=== PATIENT | male | born 1985 | race Hispanic/Latino ===

== ENCOUNTER 2018-06-04 01:50 | Emergency (ER) | payer BC, OTHER ==
--- OUTSIDE RECORDS SUMMARY | 2018-06-04 01:52 | XMS REPORT ---
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 Problem Name Problem Onset Status Entry Provider Comment Standard Annotate Code Date Date Description Health V70.0 Active Gypsy Routine general screening 10/01 10/01 Kevin mala RN examination at a health care facility Contact with V15.89 Active Malcolm Other specified and 09/29 10/01 Isabell personal (suspected) MD history exposure to presenting human hazards to [facility] virus [HIV] Preventative V70.0 Active Amalia Routine general health care 07/14 07/14 [facility] [place] mala menon MA examination at a health care facility MRSA 041.12 Active Hossein Methicillin infection, R 05/21 05/21 Michele resistant popliteal O'Josh Staphylococcus fold PRODUCT DESIGN SPECIALIST-C aureus infection in conditions classified elsewhere and of unspecified site BMI 24.0-24.9 Active Hossein Body Mass Index 01/20 01/20 Michele between 19-24, O'Josh adult PRODUCT DESIGN SPECIALIST-C Gonorrhea, hx 098.0 Active Hossein Gonococcal urethra, of 10/16 10/16 Michele infection rectal, and O'Josh (acute) of pharyngeal PRODUCT DESIGN SPECIALIST-C lower genitourinary tract Medication, V58.6 Active Hossein Long-term manager terminal use 10/16 10/16 Michele (current) drug O'Josh use PRODUCT DESIGN SPECIALIST-C Pre-Exposure V69.2 Active Hossein High-risk Prophylaxis 10/16 01/15 Michele sexual behavior O'Josh PRODUCT DESIGN SPECIALIST-C Tobacco user 305.1 Active Hossein Tobacco use 01/20 Michele disorder O'Josh PRODUCT DESIGN SPECIALIST-C Pre-Exposure V69.2 Inactive Hossein High-risk Prophylaxis 10/16 10/16 Michele sexual behavior z72.52 O'Josh PRODUCT DESIGN SPECIALIST-C Std screening ICD-V74.5 Inactive Hossein Michele 10/16 [facility] PRODUCT DESIGN SPECIALIST-C Sx of dysuria ICD-788.1 Inactive Hossein Bautista 10/16 O'Josh PRODUCT DESIGN SPECIALIST-C Urethral ICD-788.7 Inactive Hossein Bautista discharge O'Josh PRODUCT DESIGN SPECIALIST-C Std screening V74.5 Resolved Hossein Bautista Screening O'Josh PRODUCT DESIGN SPECIALIST-C examination for venereal disease Sx of dysuria 788.1 Resolved Hossein Bautista Dysuria O'Josh PRODUCT DESIGN SPECIALIST-C Urethral 788.7 Resolved Hossein Bautista Urethral discharge O'Josh PRODUCT DESIGN SPECIALIST-C discharge Medication List Medication Instructions Start Stop Generic NDC Status Provider Patient Date Date Name Instruction ISENTRESS 1 By RALTEGRAVIR [id number] Active Malcolm Active 400 MG ORAL Mouth POTASSIUM Nemecek MD TABLET Twice a Day for 28 days TRUVADA 1 by EMTRICITABINE- [id number] Active Malcolm Active 200-300 MG mouth TENOFOVIR Nemecek MD ORAL TABLET daily for 28 days BACTRIM 1 tab BACTRIM 475301 TRIMETHOPRIM- SULFAMETHOXAZOLE Inactive DS by DS 800-160 mouth 800-160 MG ORAL twice MG ORAL TABLET a day TABLET TRUVADA 1 by TRUVADA EMTRICITABINE-TENOFOVIR Inactive 200-300 mouth 200-300 MG ORAL daily MG ORAL TABLET TABLET BACTRIM 1 tab TRIMETHOPRIM-SULFAMETHOXAZOLE [id number] No Malcolm Active DS by Longer Nemecek 800-160 mouth Active MD MG ORAL twice TABLET a day TRUVADA 1 by EMTRICITABINE-TENOFOVIR [id number] No Malcolm Active 200-300 mouth Longer Nemecek MG ORAL daily Active MD TABLET Advance Directives Directive Description Start Date DISCUSSED - NO DECISION MADE Vital Signs Date Name Value Unit Range Description blood pressure, diastolic 83 mm[Hg] BP pérez blood pressure, systolic 119 mm[Hg] BP sys height E&M 67 [in_us] Bdy height pulse rate E&M 54 /min Heart rate respiratory rate E&M 16 /min Resp rate temperature E&M 98.8 [degF] Body temperature weight E&M 143.20 [lb_av] Weight Measured Diagnostic Results Date Name Value Unit Range Description Lab Report: CBC With Differential/Platelet, Comp. Metabolic Panel (14), ... - Serology hepatitis C antibody, serum <0.1 0.0-0.9 Lab Report: CBC With Differential/Platelet, Comp. Metabolic Panel (14), ... - Hematology lymphocyte count, blood, automated 1.8 X10E3/UL 10*3/mm3 0.7- 3.1 Lab Report: CBC With Differential/Platelet, Comp. Metabolic Panel (14), ... - Chemistry urea nitrogen, blood 13 mg/dL 6-20 creatinine, serum 0.99 mg/dL 0.76-1.27 chloride, serum 98 mmol/L 96-106 Lab Report: CBC With Differential/Platelet, Comp. Metabolic Panel (14), ... - Hematology mean corpuscular volume, RBC 88 fL 79-97 erythrocyte (RBC) count 4.90 X10E6/UL 10*6/mm3 4.14-5.80 Lab Report: CBC With Differential/Platelet, Comp. Metabolic Panel (14), ... - Chemistry Estimated Glomerular Filtration Rate (calc) 102 mL/min/1.73m2 > 59 Lab Report: CBC With Differential/Platelet, Comp. Metabolic Panel (14), ... - Hematology platelet count 328 X10E3/UL 10*3/mm3 442-797 1694/05/31 red blood cell distribution width 14.0 % 12.3-15.4 Lab Report: CBC With Differential/Platelet, Comp. Metabolic Panel (14), ... - Chemistry protein, total, serum 7.8 g/dL 6.0-8.5 albumin/globulin ratio, serum 1.8 1.2-2.2 Lab Report: CBC With Differential/Platelet, Comp. Metabolic Panel (14), ... - Hematology eosinophils as percent of blood leukocytes 3 % Lab Report: CBC With Differential/Platelet, Comp. Metabolic Panel (14), ... - Chemistry Absolute Neutrophils 3.7 X10E3/UL 10*3/uL 1.4-7.0 Lab Report: CBC With Differential/Platelet, Comp. Metabolic Panel (14), ... - Hematology basophil count, absolute 0.0 x10E3/uL 0.0-0.2 Lab Report: Anaerobic and Aerobic Culture, Result, Anaerobic and Aerobic ... - Chemistry Culture, Anaerobic Final report Lab Report: CBC With Differential/Platelet, Comp. Metabolic Panel (14), ... - Chemistry hepatitis B surface antigen Negative Negative Lab Report: Ct/GC ELSA, Rectal, Ct/GC ELSA, Pharyngeal - Microbiology Neisseria gonorrhoeae, throat culture Negative Negative Lab Report: CBC With Differential/Platelet, Comp. Metabolic Panel (14), ... - Chemistry alanine aminotransferase (SGPT), serum 28 U/L 0-44 Lab Report: CBC With Differential/Platelet, Comp. Metabolic Panel (14), ... - Hematology monocytes as percent of blood leukocytes 11 % Lab Report: Anaerobic and Aerobic Culture, Result, Anaerobic and Aerobic ... - Lab Aerobic culture Final report Lab Report: CBC With Differential/Platelet, Comp. Metabolic Panel (14), ... - Hematology mean corpuscular hemoglobin 34.0 G/DL % 31.5-35.7 concentration, RBC hemoglobin, blood 14.7 g/dL 12.6-17.7 leukocyte count, blood 6.4 X10E3/UL 10*3/mm3 3.4-10.8 hematocrit, blood 43.2 % 37.5-51.0 Lab Report: CBC With Differential/Platelet, Comp. Metabolic Panel (14), ... - Chemistry globulin, serum 2.8 1.5-4.5 albumin, serum 5.0 g/dL 3.5-5.5 calcium, serum 10.1 mg/dL 8.7-10.2 Lab Report: CBC With Differential/Platelet, Comp. Metabolic Panel (14), ... - Hematology basophils as percent of blood leukocytes 1 % monocyte count, blood, automated 0.7 X10E3/UL 10*3/uL 0.1-0.9 Lab Report: CBC With Differential/Platelet, Comp. Metabolic Panel (14), ... - Chemistry immature granulocytes, percentage of total cells, blood 0 % urea nitrogen/creatinine ratio, serum 13 9-20 Lab Report: CBC With Differential/Platelet, Comp. Metabolic Panel (14), ... - Genetics/fertility eGFR if 118 mL/min/1.73m2 >59 Lab Report: CBC With Differential/Platelet, Comp. Metabolic Panel (14), ... - Hematology lymphocytes as percent of blood leukocytes 28 % Lab Report: CBC With Differential/Platelet, Comp. Metabolic Panel (14), ... - Chemistry carbon dioxide, venous blood 22 mmol/L 18-29 Lab Report: CBC With Differential/Platelet, Comp. Metabolic Panel (14), ... - Serology rapid plasma reagin antibody, serum Non Reactive Non Reactive Lab Report: Chlamydia/GC Amplification - Lab chlamydia DNA probe Negative Negative Lab Report: CBC With Differential/Platelet, Comp. Metabolic Panel (14), ... - Chemistry sodium, serum 137 mmol/L 134-144 Lab Report: Chlamydia/GC Amplification - Microbiology Neisseria gonorrhoeae DNA probe Negative Negative Lab Report: CBC With Differential/Platelet, Comp. Metabolic Panel (14), ... - Chemistry alkaline phosphatase, serum 75 U/L 39-117 Lab Report: CBC With Differential/Platelet, Comp. Metabolic Panel (14), ... - Hematology Eosinophil Absolute Count 0.2 X10E3/UL 10*3/uL 0.0-0.4 Lab Report: Ct/GC ELSA, Rectal, Ct/GC ELSA, Pharyngeal - Basic GC Rectum Negative Negative Lab Report: CBC With Differential/Platelet, Comp. Metabolic Panel (14), ... - Hematology mean corpuscular hemoglobin, RBC 30.0 pg 26.6-33.0 Nurse Visit: Nurse Visit - PEP - Chemistry HIV rapid test results negative Lab Report: CBC With Differential/Platelet, Comp. Metabolic Panel (14), ... - Chemistry bilirubin, serum, total 1.0 mg/dL 0.0-1.2 Lab Report: CBC With Differential/Platelet, Comp. Metabolic Panel (14), ... - Hematology neutrophils as percent of blood leukocytes 57 % Lab Report: CBC With Differential/Platelet, Comp. Metabolic Panel (14), ... 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 Focus - 89224 PRODUCT DESIGN SPECIALIST-C Est Patient Problem Hossein Escobar CPT-98420 [facility] Adult Medicine 14:46:57 CDT Focus - 51966 PRODUCT DESIGN SPECIALIST-C New Patient Detailed Hossein Escobar CPT-66622 [facility] [place] Adult Medicine 10:07:46 CDT - 10976 PRODUCT DESIGN SPECIALIST-C Est Patient Nurse - Sonia Mark RN CPT-52274 [facility] [place] [facility] Adult Medicine 11:01:13 CDT Only Visit - 07943 Procedures Code Procedure Name Date Entry Date Standard Description CPT-FC001 Financial Counseling/Eligibility 09:15:50 AGRICULTURAL PRODUCTION ENGINEER Assistance [facility]-HE001 Health Education/Supportive 11:37:44 AGRICULTURAL PRODUCTION ENGINEER Counseling CPT-HE001 Health Education/Supportive 16:21:01 AGRICULTURAL PRODUCTION ENGINEER Counseling CPT-HE001 Health Education/Supportive 16:33:14 CDT Counseling CPT-FC001 Financial Counseling/Eligibility 10:42:39 CDT Assistance [facility]-HE001 Health Education/Supportive 09:25:18 CDT Counseling CPT-HE001 Health Education/Supportive 11:42:13 CDT Counseling CPT-HE001 Health Education/Supportive 15:15:04 CDT Counseling [facility]-HE001 Health Education/Supportive 11:35:05 CDT Counseling CPT-HE001 Health Education/Supportive 16:03:42 CDT Counseling CPT-HE001 Health Education/Supportive 15:30:44 CDT Counseling CPT-HE001 Health Education/Supportive 14:21:57 CDT Counseling CPT-HE001 Health Education/Supportive 15:36:04 CDT Counseling CPT-HE001 Health Education/Supportive 15:13:37 CDT Counseling CPT-HE001 Health Education/Supportive 16:26:03 CDT Counseling CPT-HE001 Health Education/Supportive 14:20:04 CDT Counseling CPT-HE001 Health Education/Supportive 16:39:08 CDT Counseling CPT-HE001 Health Education/Supportive 15:27:12 CDT Counseling CPT-HE001 Health Education/Supportive 08:10:53 CDT Counseling [facility]-HE001 Health Education/Supportive 10:04:09 CDT Counseling [facility]-HE001 Health Education/Supportive 08:20:20 CDT Counseling [facility]-J8499 Azithromycin oral 11:01:13 CDT CPT-J0696 Injection, ceftriaxone sodium, per 250 mg 11:01:13 CDT CPT-64078 [facility] - In House 11:01:11 CDT
[2018-06-04] MEDS ORDERED: ONDANSETRON 4 MG/2 ML VIAL ONE (02:30)
[2018-06-04] MEDS ORDERED: NA CHLORIDE 0.9% 1,000 ML ONE (02:30)
[2018-06-04] MEDS ORDERED: PANTOPRAZOLE 40 MG INJ ONE (02:30)
[2018-06-04] MEDS ORDERED: MORPHINE 4 MG/ML SYR ONE (02:30)
[2018-06-04 02:49] LABS: Absolute Lymphocytes (CBC) 3.2 K/uL (0.7-4.9); Absolute Monocytes 0.8 K/uL (0.1-1.3); Absolute Neutrophil 4.4 K/uL (1.8-8.0); Basophils % 0.5 % (0-1.3); Eosinophils % 5.4 % (0-4.4); Hematocrit 41.8 % (39.6-49.0); Lymphocytes % 35.4 % (15.3-44.8); MPV 8.6 fL (7.6-11.3); Monocytes % 9.1 % (3.3-12.3); RBC Red Blood Cell Count 4.92 M/uL (4.33-5.43)
[2018-06-04 02:50] LABS: Protime INR 1.02
[2018-06-04 03:10] LABS: ALT/SGPT 65 U/L (12-78); AST/SGOT 35 U/L (15-37); Albumin 4.5 g/dL (3.4-5.0); Alkaline Phosphatase 84 U/L (45-117); BUN Blood Urea Nitrogen 20 mg/dL (7-18); Bicarbonate 28 mmol/L (21-32); Bilirubin Direct 0.2 mg/dL (0-0.2); Bilirubin Total 0.5 mg/dL (0.2-1.0); Glucose Level 94 mg/dL (74-106); Lipase 204 U/L (73-393); Magnesium 2.3 mg/dL (1.8-2.4); NT PRO-BNP 12 pg/mL (<125); Potassium 3.4 mmol/L (3.5-5.1); Protein, Total 8.7 g/dL (6.4-8.2); Sodium Level 140 mmol/L (136-145); Troponin (Emerg Dept Use Only) < 0.02 ng/mL (0.0-0.045)
--- NOTE | 2018-06-04 05:51 | ER ---
Nurse's Notes [facility] Name: Kvng Parker Age: 33 yrs Sex: Male : 1985 Arrival Date: 06/04/2018 Time: 01:57 Bed 6 Private MD: Diagnosis: Abdominal tenderness;Functional dyspepsia;Zoster [herpes zoster] Presentation: 06/04 02:08 Presenting complaint: Patient states: I have been having pain in my upper stomach since ed1 around 11pm. Transition of care: patient was not received from another setting of care. Onset of symptoms was June 03, 2018. Risk Assessment: Do you want to hurt yourself or someone else?. Initial Sepsis Screen: Does the patient meet any 2 criteria? No. Patient's initial sepsis screen is negative. Does the patient have a suspected source of infection? No. Patient's initial sepsis screen is negative. Care prior to arrival: None. 02:08 Method Of Arrival: Ambulatory ed1 02:08 Acuity: SHEILA 3 ed1 Triage Assessment: 02:10 General: Appears in no apparent distress. Behavior is calm, cooperative. Pain: ed1 Complains of pain in epigastric area Pain does not radiate. Pain currently is 6 out of 10 on a pain scale. Quality of pain is described as aching, Pain began 4 hours ago. Is continuous. EENT: Oral mucosa is moist. Neuro: Level of Consciousness is awake, alert, obeys commands, Oriented to person, place, time, situation. Cardiovascular: Denies chest pain, Heart tones S1 S2 present. Respiratory: Airway is patent Respiratory effort is even, unlabored, Respiratory pattern is regular, symmetrical, Breath sounds are clear bilaterally. GI: Abdomen is non-distended, Bowel sounds present X 4 quads. Abd is soft X 4 quads Abdomen is tender to palpation in epigastric area Reports nausea, Patient currently denies diarrhea, vomiting. : : No signs and/or symptoms were reported regarding the genitourinary system. Derm: Skin is intact, is healthy with good turgor, Skin is dry, Skin is normal, Skin temperature is warm. Musculoskeletal: Circulation, motion, and sensation intact. Range of motion: intact in all extremities. Historical: - Allergies: 02:10 No Known Allergies; ed1 - Home Meds: 02:10 None [Active]; ed1 - PMHx: 02:10 lactose intolerance; ed1 - PSHx: 02:10 None; ed1 - Immunization history:: Adult Immunizations up to date. - Social history:: Smoking status: Patient/guardian denies using tobacco. - Family history:: not pertinent. - Ebola Screening: : Patient negative for fever greater than or equal to 101.5 degrees Fahrenheit, and additional compatible Ebola Virus Disease symptoms Patient denies exposure to infectious person Patient denies travel to an Ebola-affected area in the 21 days before illness onset No symptoms or risks identified at this time. Screenin:10 Abuse screen: Denies threats or abuse. Denies injuries from another. Nutritional ed1 screening: No deficits noted. Tuberculosis screening: No symptoms or risk factors identified. Fall Risk None identified. Assessment: 02:10 General: See triage assessment. ed1 02:58 Reassessment: Patient appears in no apparent distress at this time. Patient and/or ed1 family updated on plan of care and expected duration. Pain level reassessed. Patient is alert, oriented x 3, equal unlabored respirations, skin warm/dry/pink. Pt states "My nausea is much better." Patient states feeling better. Patient states symptoms have improved. 04:06 Reassessment: Patient appears in no apparent distress at this time. No changes from ed1 previously documented assessment. Patient and/or family updated on plan of care and expected duration. Pain level reassessed. Patient is alert, oriented x 3, equal unlabored respirations, skin warm/dry/pink. Patient states feeling better. Patient states symptoms have improved. 05:05 Reassessment: Patient appears in no apparent distress at this time. No changes from ed1 previously documented assessment. Patient and/or family updated on plan of care and expected duration. Pain level reassessed. Patient is alert, oriented x 3, equal unlabored respirations, skin warm/dry/pink. Patient states feeling better. Patient states symptoms have improved. 06:07 Reassessment: Patient appears in no apparent distress at this time. Patient and/or ed1 family updated on plan of care and expected duration. Pain level reassessed. Patient is alert, oriented x 3, equal unlabored respirations, skin warm/dry/pink. Patient denies pain at this time. Patient states feeling better. Patient states symptoms have improved. Vital Signs: 02:10 BP 146 / 103; Pulse 66; Resp 16; Temp 98.6(O); Pulse Ox 100% ; Weight 74.84 kg (R); ed1 Height 5 ft. 6 in. (167.64 cm); Pain 6/10; 02:58 BP 135 / 93; Pulse 66; Resp 16; Pulse Ox 100% on R/A; Pain 5/10; ed1 04:06 BP 129 / 72; Pulse 65; Resp 17; Pulse Ox 100% on R/A; Pain 4/10; ed1 05:05 BP 109 / 67; Pulse 63; Resp 12; Pulse Ox 96% on R/A; Pain 4/10; ed1 06:07 BP 116 / 97; Pulse 71; Resp 17; Pulse Ox 100% on R/A; Pain 0/10; ed1 02:10 Body Mass Index 26.63 (74.84 kg, 167.64 cm) ed1 ED Course: 01:57 Patient arrived in ED. es 02:02 Navi Boyd MD is Attending Physician. meryl 02:08 Divina Garcia RN is Primary Nurse. ed1 02:09 Triage completed. ed1 02:10 Arm band placed on. ed1 02:10 Patient has correct armband on for positive identification. Placed in gown. Bed in low ed1 position. Call light in reach. Side rails up X 1. Adult w/ patient. Pulse ox on. NIBP on. 02:25 Inserted saline lock: 20 gauge in right antecubital area, using aseptic technique. oe Blood collected. 02:39 XRAY Chest (1 view) In Process Unspecified. EDMS 04:13 Radiology exam delayed due to Patient finished contrast at 0245 - to be scanned at kw1 0415. Currently in restroom with cramps. Will resume exam ADRIAN. 04:[address] via wheelchair. kw1 05:22 CT Abd/Pelvis - W/Contrast In Process Unspecified. EDMS 05:51 Terell Hernandez MD is Referral Physician. meryl 06:07 No provider procedures requiring assistance completed. IV discontinued, intact, ed1 bleeding controlled, No redness/swelling at site. Pressure dressing applied. Administered Medications: 02:25 Drug: NS 0.9% 1000 ml Route: IV; Rate: 1 bolus; Site: right antecubital; ed1 05:48 Follow up: IV Status: Completed infusion; IV Intake: 1000ml ed1 02:26 Drug: ProTONIX 40 mg Route: IVP; Site: right antecubital; ed1 03:00 Follow up: Response: No adverse reaction ed1 02:26 Drug: Zofran 4 mg Route: IVP; Site: right antecubital; ed1 03:00 Follow up: Response: No adverse reaction; Nausea is decreased ed1 04:09 Not Given (Patient Refused): morphine 2 mg IVP once ed1 04:10 Not Given (Patient Refused): morphine 2 mg IVP once ed1 05:48 Drug: Potassium Effervescent Tablet 25 mEq Route: PO; ed1 06:07 Follow up: Response: No adverse reaction ed1 Intake: 05:48 IV: 1000ml; Total: 1000ml. ed1 Outcome: 05:51 Discharge ordered by . meryl 06:07 Discharged to home ambulatory. ed1 06:07 Condition: good 06:07 Discharge instructions given to patient, Instructed on discharge instructions, follow up and referral plans. medication usage, Demonstrated understanding of instructions, follow-up care, medications, Prescriptions given X 2. 06:08 Patient left the ED. ed1 Signatures: Dispatcher [employer] EDMS Navi Boyd MD MD cha Salyer, Edna es Riggs, Erika RN RN ed1 Jeffrey Jorge Kimberly kw1 Corrections: (The following items were deleted from the chart) 02:47 02:46 Inserted saline lock: 20 gauge in right antecubital area, using aseptic oe technique. oe
--- NOTE | 2018-06-04 05:52 | EDPHYS ---
Physician Documentation [facility] Name: Kvng Parker Age: 33 yrs Sex: Male : 1985 Arrival Date: 06/04/2018 Time: 01:57 Bed 6 Private MD: ED Physician Navi Boyd HPI: 06/04 02:08 This 33 yrs old Male presents to ER via Unassigned with complaints of meryl Abdominal Pain. 02:08 The patient presents with abdominal pain in the epigastric area, in the upper abdomen. meryl Onset: The symptoms/episode began/occurred 2 day(s) ago. The symptoms do not radiate. Associated signs and symptoms: none. The symptoms are described as constant, crampy. Modifying factors: The symptoms are alleviated by nothing, the symptoms are aggravated by food. Severity of pain: At its worst the pain was. The patient has not experienced similar symptoms in the past. Historical: - Allergies: 02:10 No Known Allergies; ed1 - Home Meds: 02:10 None [Active]; ed1 - PMHx: 02:10 lactose intolerance; ed1 - PSHx: 02:10 None; ed1 - Immunization history:: Adult Immunizations up to date. - Social history:: Smoking status: Patient/guardian denies using tobacco. - Family history:: not pertinent. - Ebola Screening: : Patient negative for fever greater than or equal to 101.5 degrees Fahrenheit, and additional compatible Ebola Virus Disease symptoms Patient denies exposure to infectious person Patient denies travel to an Ebola-affected area in the 21 days before illness onset No symptoms or risks identified at this time. ROS: 02:08 Constitutional: Negative for fever, chills, and weight loss, Eyes: Negative for injury, meryl pain, redness, and discharge, ENT: Negative for injury, pain, and discharge, Neck: Negative for injury, pain, and swelling, Cardiovascular: Negative for chest pain, palpitations, and edema, Respiratory: Negative for shortness of breath, cough, wheezing, and pleuritic chest pain, Back: Negative for injury and pain, : Negative for injury, bleeding, discharge, and swelling, MS/Extremity: Negative for injury and deformity, Skin: Negative for injury, rash, and discoloration, Neuro: Negative for headache, weakness, numbness, tingling, and seizure, Psych: Negative for depression, anxiety, suicide ideation, homicidal ideation, and hallucinations, Allergy/Immunology: Negative for hives, rash, and allergies, Endocrine: Negative for neck swelling, polydipsia, polyuria, polyphagia, and marked weight changes, Hematologic/Lymphatic: Negative for swollen nodes, abnormal bleeding, and unusual bruising. 02:08 Abdomen/GI: Positive for abdominal pain, of the epigastric area. Exam: 02:08 Constitutional: This is a well developed, well nourished patient who is awake, alert, meryl and in no acute distress. Head/Face: Normocephalic, atraumatic. Eyes: Pupils equal round and reactive to light, extra-ocular motions intact. Lids and lashes normal. Conjunctiva and sclera are non-icteric and not injected. Cornea within normal limits. Periorbital areas with no swelling, redness, or edema. ENT: Nares patent. No nasal discharge, no septal abnormalities noted. Tympanic membranes are normal and external auditory canals are clear. Oropharynx with no redness, swelling, or masses, exudates, or evidence of obstruction, uvula midline. Mucous membranes moist. Neck: Trachea midline, no thyromegaly or masses palpated, and no cervical lymphadenopathy. Supple, full range of motion without nuchal rigidity, or vertebral point tenderness. No Meningismus. Chest/axilla: Normal chest wall appearance and motion. Nontender with no deformity. No lesions are appreciated. Cardiovascular: Regular rate and rhythm with a normal S1 and S2. No gallops, murmurs, or rubs. Normal PMI, no JVD. No pulse deficits. Respiratory: Lungs have equal breath sounds bilaterally, clear to auscultation and percussion. No rales, rhonchi or wheezes noted. No increased work of breathing, no retractions or nasal flaring. Back: No spinal tenderness. No costovertebral tenderness. Full range of motion. Male : Normal genitalia with no discharge or lesions. Skin: Warm, dry with normal turgor. Normal color with no rashes, no lesions, and no evidence of cellulitis. MS/ Extremity: Pulses equal, no cyanosis. Neurovascular intact. Full, normal range of motion. Neuro: Awake and alert, GCS 15, oriented to person, place, time, and situation. Cranial nerves II-XII grossly intact. Motor strength 5/5 in all extremities. Sensory grossly intact. Cerebellar exam normal. Normal gait. Psych: Awake, alert, with orientation to person, place and time. Behavior, mood, and affect are within normal limits. 02:08 Abdomen/GI: Inspection: abdomen appears normal, Bowel sounds: normal, Palpation: mild abdominal tenderness, moderate abdominal tenderness, in the epigastric area, Liver: no appreciated palpable abnormalities, Hernia: not appreciated. Vital Signs: 02:10 BP 146 / 103; Pulse 66; Resp 16; Temp 98.6(O); Pulse Ox 100% ; Weight 74.84 kg (R); ed1 Height 5 ft. 6 in. (167.64 cm); Pain 6/10; 02:58 BP 135 / 93; Pulse 66; Resp 16; Pulse Ox 100% on R/A; Pain 5/10; ed1 04:06 BP 129 / 72; Pulse 65; Resp 17; Pulse Ox 100% on R/A; Pain 4/10; ed1 05:05 BP 109 / 67; Pulse 63; Resp 12; Pulse Ox 96% on R/A; Pain 4/10; ed1 06:07 BP 116 / 97; Pulse 71; Resp 17; Pulse Ox 100% on R/A; Pain 0/10; ed1 02:10 Body Mass Index 26.63 (74.84 kg, 167.64 cm) ed1 MDM: 02:03 Patient medically screened. [facility] 02:10 Data reviewed: vital signs, nurses notes, lab test result(s), EKG, radiologic studies, [facility] CT scan, plain films. 06/04 02:08 Order name: Basic Metabolic Panel; Complete Time: 03:[address] [facility] 06/04 02:08 Order name: CBC with Diff; Complete Time: 02:[address] [facility] 06/04 02:08 Order name: LFT's; Complete Time: 03:[address] [facility] 06/04 02:08 Order name: Magnesium; Complete Time: 03:[address] [facility] 06/04 02:08 Order name: NT PRO-BNP; Complete Time: 03:[address] [facility] 06/04 02:08 Order name: PT-INR; Complete Time: 02:[address] [facility] 06/04 02:08 Order name: Troponin (emerg Dept Use Only); Complete Time: 03:[address] [facility] 06/04 02:08 Order name: XRAY Chest (1 view) [facility] 06/04 02:08 Order name: Lipase; Complete Time: 03:[address] [facility] 06/04 02:08 Order name: CT Abd/Pelvis - W/Contrast [facility] 06/04 02:08 Order name: EKG; Complete Time: 02:[address] [facility] 06/04 02:08 Order name: Cardiac monitoring; Complete Time: 02:[address] [facility] 06/04 02:08 Order name: EKG - Nurse/Tech; Complete Time: 02:[address] [facility] 06/04 02:08 Order name: IV Saline Lock; Complete Time: 02:[address] [facility] 06/04 02:08 Order name: Labs collected and sent; Complete Time: 02:[address] [facility] 06/04 02:08 Order name: O2 Per Protocol; Complete Time: 02:[address] [facility] 06/04 02:08 Order name: O2 Sat Monitoring; Complete Time: 02:[address] [facility] Administered Medications: 02:25 Drug: NS 0.9% 1000 ml Route: IV; Rate: 1 bolus; Site: right antecubital; ed1 05:48 Follow up: IV Status: Completed infusion; IV Intake: 1000ml ed1 02:26 Drug: ProTONIX 40 mg Route: IVP; Site: right antecubital; ed1 03:00 Follow up: Response: No adverse reaction ed1 02:26 Drug: Zofran 4 mg Route: IVP; Site: right antecubital; ed1 03:00 Follow up: Response: No adverse reaction; Nausea is decreased ed1 04:09 Not Given (Patient Refused): morphine 2 mg IVP once ed1 04:10 Not Given (Patient Refused): morphine 2 mg IVP once ed1 05:48 Drug: Potassium Effervescent Tablet 25 mEq Route: PO; ed1 06:07 Follow up: Response: No adverse reaction ed1 Disposition: 06/04/18 05:51 Discharged to Home. Impression: Abdominal tenderness, Functional dyspepsia, Zoster [herpes zoster]. - Condition is Stable. - Discharge Instructions: Abdominal Pain, Adult, Indigestion, Abdominal Pain, Adult, [id number]. - Prescriptions for Bentyl 20 mg Oral Tablet - take 1 tablet by ORAL route every 6 hours As needed; 20 tablet. Protonix 40 mg Oral Tablet - take 1 tablet by ORAL route once daily; 30 tablet. - Medication Reconciliation Form, Thank You Letter, Antibiotic Education, Prescription Opioid Use form. - Follow up: Private Physician; When: 2 - 3 days; Reason: Recheck today's complaints, Continuance of care, Re-evaluation by your physician. Follow up: Terell Hernandez; When: 2 - 3 days; Reason: Recheck today's complaints, Re-evaluation by your physician. - Problem is new. - Symptoms have improved. Signatures: Dispatcher [employer] EDMS Navi Boyd MD MD cha Riggs, Erika, RN RN ed1 Corrections: (The following items were deleted from the chart) 05:53 05:51 06/04/2018 05:51 Discharged to Home. Impression: Abdominal tenderness; Functional meryl dyspepsia. Condition is Stable. Discharge Instructions: Abdominal Pain, Adult, Indigestion, Abdominal Pain, Adult, [id number]. Prescriptions for Bentyl 20 mg Oral Tablet - take 1 tablet by ORAL route every 6 hours As needed; 20 tablet, Protonix 40 mg Oral Tablet - take 1 tablet by ORAL route once daily; 30 tablet. and Forms are Medication Reconciliation Form, Thank You Letter, Antibiotic Education, Prescription Opioid Use. Follow up: Private Physician; When: 2 - 3 days; Reason: Recheck today's complaints, Continuance of care, Re-evaluation by your physician. Follow up: Terell Hernandez; When: 2 - 3 days; Reason: Recheck today's complaints, Re-evaluation by your physician. Problem is new. Symptoms have improved. [facility] 06:08 05:53 06/04/2018 05:51 Discharged to Home. Impression: Abdominal tenderness; Functional ed1 dyspepsia; Zoster [herpes zoster]. Condition is Stable. Discharge Instructions: Abdominal Pain, Adult, Indigestion, Abdominal Pain, Adult, [id number]. Prescriptions for Bentyl 20 mg Oral Tablet - take 1 tablet by ORAL route every 6 hours As needed; 20 tablet, Protonix 40 mg Oral Tablet - take 1 tablet by ORAL route once daily; 30 tablet. and Forms are Medication Reconciliation Form, Thank You Letter, Antibiotic Education, Prescription Opioid Use. Follow up: Private Physician; When: 2 - 3 days; Reason: Recheck today's complaints, Continuance of care, Re-evaluation by your physician. Follow up: Terell Hernandez; When: 2 - 3 days; Reason: Recheck today's complaints, Re-evaluation by your physician. Problem is new. Symptoms have improved. meryl
[2018-06-04] MEDS ORDERED: POTASSIUM 25 MEQ EFFERV TAB ONE (05:53)
--- NOTE | 2018-06-04 09:35 | RAD REPORT ---
EXAM DESCRIPTION: RAD - Chest Single View - 06/04/2018 2:40 am CLINICAL HISTORY: Upper abdominal pain COMPARISON: None. TECHNIQUE: AP portable chest image was obtained 0239 hours . FINDINGS: Lungs are clear. Heart and vasculature are normal. No measurable pleural effusion and no p neumothorax. No acute bony abnormality seen. No acute aortic findings suspected. IMPRESSION: No acute cardiopulmonary process.
--- NOTE | 2018-06-04 11:23 | RAD REPORT ---
EXAM DESCRIPTION: CT - Abdomen Pelvis W Contrast CLINICAL HISTORY: AThe patient is 33 years old and is Male: ABD PAIN. COMPARISON: No relevant prior studies available. TECHNIQUE: Axial computed tomography images of the abdomen and pelvis with intravenous contrast. Sagittal and co linda reformatted images were created and reviewed. This CT exam was performed using one or more of t he following dose reduction techniques: Automated exposure control, adjustment of the mA and/or kV ac cording to patient size, and/or use of iterative reconstruction technique. FINDINGS: Lung bases: Unremarkable. No mass. No consolidation. ABDOMEN: Liver: The live is mildly fatty. Gallbladder and bile ducts: The gallbladder is physiologically distended. No calcified gallstones or ductal dilatation is seen. Pancreas: No ductal dilatation. No mass. Spleen: Unremarkable. Adrenals: Unremarkable. No mass. Kidneys and ureters: Unremarkable. No solid mass. No hydronephrosis. Stomach and bowel: Contrast and food contents are present within the stomach. The majority of small b owel filled with oral contrast which is normal in caliber. Contrast ands stool are present throughout the colon to the level of the rectum. There is no mucosal thickening or evidence of bowel obstructio n. PELVIS: Appendix: The appendix is normal in caliber without surrounding inflammation. Bladder: Unremarkable. No mass. Reproductive: Unremarkable as visualized. ABDOMEN and PELVIS: Intraperitoneal space: Unremarkable. No free air. No significant fluid collection. Bones/Joints: No acute fracture. Soft tissues: The soft tissues are normal. Vasculature: Unremarkable. No abdominal aortic aneurysm. Lymph nodes: Unremarkable. No enlarged lymph nodes. IMPRESSION: No acute findings on this contrasted CT of the abdomen and pelvis to explain the patient's symptoms. Electronically signed by: Renetta Molina MD 06/04/2018 5:28 AM PRODUCTION CONTROL PLANNER Due to temporary technical issues with the PACS/Fluency reporting system, reports are being signed by the in house radiologist as a courtesy to ensure prompt reporting. The interpreting radiologist is f saadly responsible for the content of the report.
--- NOTE | 2018-06-04 16:17 | EKG ---
Test Date: 2018-06-04 Test Time: 02:53:10 Unarmed Security Officer: JUANITA MEASUREMENT RESULTS: Intervals: Rate: 71 CO: 150 QRSD: 100 QT: 360 QTc: 391 [place]: P: 41 CO: 150 QRS: 24 T: 24 INTERPRETIVE STATEMENTS: Normal sinus rhythm with sinus arrhythmia Normal ECG No previous ECG available for comparison Electronically Signed On 06-04-18 16:16:46 BOILERMAKER LOFTSMAN by Srikanth Kang
== END 2018-06-04 06:08 | disposition home or self-care (01) ==
LOC: ER 01:50
DX: K30 Functional dyspepsia (principal); B02.9 Zoster without complications
CPT/HCPCS: 36415; 71045; 74177; 80048; 80076; 83690; 83735; 83880; 84484; 85025; 85610; 93005; 96361; 96374; 96375; 99284; C9113; J2405; J7030; Q9967

== ENCOUNTER 2019-11-05 17:39 | Emergency (ER) | payer OTHER ==
--- OUTSIDE RECORDS SUMMARY | 2019-11-05 17:41 | XMS REPORT | Continuity of Care Document ---
:1985 Author Organization [facility] t Address [address] [place] [address] Care Team Providers Name Role Phone Blank Attending Clinician Unavailable Problems This patient has no known problems. Allergies, Adverse Reactions, Alerts This patient has no known allergies or adverse reactions. Medications This patient has no known medications. Procedures This patient has no known procedures. Results Test Description Test Time Test Comments Results Result Sourc e Comments CT THORAX W 2018-07-26 Addendum created at 17:48:36 07/26/2018 7:28:07 PM:Addendum: Comparison is made to Chest x-ray 07/20/2018Addendum by: MARIA LUISA DeleonLINICAL INDICATION: R91.1 Solitary pulmonary noduleMODALITY: Siemens Probe [employer] CT (Iterative dose reduction techniques are utilized.)TECHNIQUE: Contrast enhanced (90 cc optiray 350) helical scans through the chest were performed.Computed Tomography Dose Index (CDTI): 10.8 mGy.IMPRESSION:Left upper lobe/lingula nodule likely represents a mucocele. Recommend follow-up CT chest in 3-6 months.FINDINGS:COMPAR JOSE J: NoneA 1.5 x 0.8 cm, oblong nodule is noted in the left upper lobe/lingula on series 2, image 86. This has a branching/tubular morphology suggestive of a mucocele. Mild subsegmental atelectasis is seen in the lingula. A 0.5 cm pulmonary nodule in the right upper lobe along the minor fissure on image 77 is suggestive of an intrapulmonary lymph node. The lungs are otherwise clear.There is no pleural effusion, focal thickening or mass.There is no pathologic mediastinal or hilar lymphadenopathy. Small subcarinal lymph nodes are likely reactive. A small amount of residual thymic tissue is noted within the anterior mediastinum. Heart and great vessels appear unremarkable. No pericardial thickening or effusion.No pathologic axillary or supraclavicular lymphadenopathy.The thyroid is homogeneous without focal abnormality.The chest wall is intact. No lytic or blastic osseous lesions. Mild bilateral gynecomastia is noted.The visualized upper abdomen is unremarkable.PQRS 436: [id number] (For official use only.)
[2019-11-05] MEDS ORDERED: LORAZEPAM 1 MG TABLET ONE (18:10)
[2019-11-05 18:19] LABS: Absolute Lymphocytes (CBC) 2.3 K/uL (0.7-4.9); Basophils % 0.8 % (0-1.3); Hematocrit 42.4 % (39.6-49.0); MPV 8.7 fL (7.6-11.3); RBC Red Blood Cell Count 5.02 M/uL (4.33-5.43)
[2019-11-05 18:24] LABS: Protime INR 1.13
[2019-11-05 18:36] LABS: ALT/SGPT 40 U/L (12-78); AST/SGOT 31 U/L (15-37); Albumin 4.7 g/dL (3.4-5.0); Alkaline Phosphatase 75 U/L (45-117); BUN Blood Urea Nitrogen 10 mg/dL (7-18); Bicarbonate 20 mmol/L (21-32); Bilirubin Direct 0.1 mg/dL (0-0.2); Bilirubin Total 0.5 mg/dL (0.2-1.0); Glucose Level 116 mg/dL (74-106); NT PRO-BNP 27 pg/mL (<125); Potassium 3.3 mmol/L (3.5-5.1); Protein, Total 9.1 g/dL (6.4-8.2); Sodium Level 139 mmol/L (136-145); Troponin (Emerg Dept Use Only) < 0.02 ng/mL (0.0-0.045)
--- NOTE | 2019-11-05 18:53 | RAD REPORT ---
EXAM DESCRIPTION: RAD - Chest Single View - 11/05/2019 6:47 pm CLINICAL HISTORY: CHEST PAIN Chest pain. COMPARISON: Chest Single View dated 06/04/2018 FINDINGS: Portable technique limits examination quality. The lungs are grossly clear. The heart is normal in size. No displaced fractures. IMPRESSION: No acute intrathoracic process suspected.
--- NOTE | 2019-11-05 19:01 | ER ---
Nurse's Notes [facility] Name: Kvng Parker Age: 34 yrs Sex: Male : 1985 Arrival Date: 11/05/2019 Time: 17:44 Bed 23 Private MD: Diagnosis: Other stimulant abuse with intoxication-methamphetamin;Tachycardia, unspecified Presentation: 11/04 17:56 Chief complaint: Patient states: chest pain "that feels more stomach related now" dm5 numbness in left face and left arm. Pt reports doing meth at 0200 this morning. Pt states that numbness started at around noon today. Coronavirus screen: Patient denies a cough. Patient denies shortness of breath or difficulty breathing. Patient denies measured and/or subjective temperature greater than 100.4F prior to today's visit. Patient denies travel on a cruise ship or to a country the [facility] currently lists as an affected area. Patient denies contact with known and/or suspected case of COVID-19. Ebola Screen: Patient negative for fever greater than or equal to 101.5 degrees Fahrenheit, and additional compatible Ebola Virus Disease symptoms Patient denies exposure to infectious person. Patient denies travel to an Ebola-affected area in the 21 days before illness onset. No symptoms or risks identified at this time. 17:56 Method Of Arrival: Ambulatory dm5 17:56 Acuity: SHEILA 3 dm5 18:00 Initial Sepsis Screen: Does the patient meet any 2 criteria? No. Patient's initial dm5 sepsis screen is negative. Does the patient have a suspected source of infection? No. Patient's initial sepsis screen is negative. Risk Assessment: Do you want to hurt yourself or someone else? Patient reports no desire to harm self or others. Onset of symptoms was November 06, 2019. Triage Assessment: 18:00 General: Appears in no apparent distress. uncomfortable, Behavior is cooperative, dm5 anxious. Pain: Complains of pain in anterior aspect of left upper chest. Neuro: Level of Consciousness is awake, alert, obeys commands, Oriented to person, place, time, Reports numbness in left side of head and left arm. Cardiovascular: Reports chest pain. Respiratory: Airway is patent Respiratory effort is even, unlabored, Respiratory pattern is regular, symmetrical. Derm: Skin is pink, warm \\T\\ dry. Historical: - Allergies: 11/05 08:42 No Known Allergies; dm5 - Home Meds: 08:42 None [Active]; dm5 - PMHx: 08:43 Lactose intolerance; dm5 - PSHx: 08:42 None; dm5 - Immunization history:: Adult Immunizations not up to date. - Social history:: Patient/guardian denies using alcohol, street drugs, The patient lives with family, Smoking status: Patient denies any tobacco usage or history of. Patient uses street drugs, Methamphetamine (Meth). Screenin/04 18:00 Abuse screen: Denies threats or abuse. Denies injuries from another. Nutritional dm5 screening: No deficits noted. Tuberculosis screening: No symptoms or risk factors identified. Fall Risk None identified. Assessment: 18:00 General: Appears in no apparent distress. Behavior is anxious. General: Behavior is dm5 anxious. Pain: Pain radiates to chest Pain currently is 2 out of 10 on a pain scale. Pain began gradually. Neuro: Level of Consciousness is awake, alert, obeys commands, Oriented to person, place, time. Respiratory: Airway is patent Respiratory effort is even, unlabored, Respiratory pattern is regular, symmetrical. Derm: Skin is pink, warm \\T\\ dry. 20:55 Reassessment: Patient appears in no apparent distress at this time. Patient and/or ss family updated on plan of care and expected duration. Pain level reassessed. Patient is alert, oriented x 3, equal unlabored respirations, skin warm/dry/pink. Patient states feeling better. Patient states symptoms have improved. Vital Signs: 17:56 BP 154 / 97; Pulse 120; Resp 22; Temp 99.2(O); Pulse Ox 98% ; dm5 20:54 Pulse 102; ss Andrea Coma Score: 18:00 Eye Response: spontaneous(4). Verbal Response: oriented(5). Motor Response: obeys dm5 commands(6). Total: 15. ED Course: 16:05 Initial lab(s) drawn, by me, sent to lab. EKG done, by ED staff, reviewed by Angelic Kelly MD. Inserted saline lock: 20 gauge in right antecubital area, using aseptic technique. Blood collected. 17:44 Patient arrived in ED. mr 17:56 Angelic Kelly MD is Attending Physician. ma2 17:56 Rhonda Seay, RN is Primary Nurse. dm5 17:59 Triage completed. dm5 18:00 Arm band placed on Patient placed in an exam room, on oxygen, on property assessment monitor, on dm5 pulse oximetry. 18:00 Patient has correct armband on for positive identification. threat monitoring analyst on. Pulse dm5 ox on. NIBP on. 18:53 XRAY Chest (1 view) In Process Unspecified. EDMS 20:53 No provider procedures requiring assistance completed. IV discontinued, intact, ss bleeding controlled, No redness/swelling at site. Pressure dressing applied. Patient maintains SpO2 saturation greater than 95% on room air. Administered Medications: 18:03 Drug: Ativan 2 mg Route: PO; dm5 19:06 Drug: NS 0.9% 1000 ml Route: IV; Rate: 1 bolus; Site: right antecubital; dm5 20:55 Follow up: IV Status: Completed infusion; IV Intake: 1000ml ss 19:06 Drug: Ativan 1 mg Route: IVP; Site: right antecubital; dm5 20:55 Follow up: Response: No adverse reaction; Anxiety decreased ss Intake: 20:55 IV: 1000ml; Total: 1000ml. Outcome: 19:01 Discharge ordered by . ma2 20:53 Discharged to home ambulatory. 20:53 Condition: good 20:53 Discharge instructions given to patient, Instructed on discharge instructions, follow up and referral plans. medication usage, Demonstrated understanding of instructions, follow-up care. 20:55 Patient left the ED. ss Signatures: Dispatcher [employer] [facility] Rhonda Seay, RN Rachel William Shelby, RN RN Angelic Kelly MD MD ma2 Jackson, Kandis [email or web address] Corrections: (The following items were deleted from the chart) 11/05 08:43 08:42 PMHx: Lactose intolerance; dm5 dm5
--- NOTE | 2019-11-05 19:01 | EDPHYS ---
Physician Documentation [facility] Name: Kvng Parker Age: 34 yrs Sex: Male : 1985 Arrival Date: 11/05/2019 Time: 17:44 Bed 23 Private MD: ED Physician Angelic Kelly HPI: 11/04 18:03 This 34 yrs old Male presents to ER via Ambulatory with complaints of Chest ma2 Pain, Numbness Of Arm. 18:03 The patient or guardian reports chest pain that is located primarily in the substernal ma2 area. The pain does not radiate. Associated signs and symptoms: Pertinent negatives: cough, dizziness, lower extremity swelling, lightheadedness. The chest pain is described as aching. Severity of pain: At its worst the pain was moderate in the emergency department the pain is unchanged. The patient has not experienced similar symptoms in the past. smoked Meth and then started to have chest pain . Historical: - Allergies: 11/05 08:42 No Known Allergies; dm5 - Home Meds: 08:42 None [Active]; dm5 - PMHx: 08:43 Lactose intolerance; dm5 - PSHx: 08:42 None; dm5 - Immunization history:: Adult Immunizations not up to date. - Social history:: Patient/guardian denies using alcohol, street drugs, The patient lives with family, Smoking status: Patient denies any tobacco usage or history of. Patient uses street drugs, Methamphetamine (Meth). ROS: 11/04 18:03 Constitutional: Negative for fever, chills, and weight loss. ma2 All other systems are negative. Exam: 18:03 Constitutional: This is a well developed, well nourished patient who is awake, alert, ma2 and in no acute distress. Eyes: Pupils equal round and reactive to light, extra-ocular motions intact. Lids and lashes normal. Conjunctiva and sclera are non-icteric and not injected. Cornea within normal limits. Periorbital areas with no swelling, redness, or edema. Neck: Trachea midline, no thyromegaly or masses palpated, and no cervical lymphadenopathy. Supple, full range of motion without nuchal rigidity, or vertebral point tenderness. No Meningismus. Chest/axilla: Normal chest wall appearance and motion. Nontender with no deformity. No lesions are appreciated. Cardiovascular: Regular rate and rhythm with a normal S1 and S2. No gallops, murmurs, or rubs. Normal PMI, no JVD. No pulse deficits. Respiratory: Lungs have equal breath sounds bilaterally, clear to auscultation and percussion. No rales, rhonchi or wheezes noted. No increased work of breathing, no retractions or nasal flaring. Abdomen/GI: Soft, non-tender, with normal bowel sounds. No distension or tympany. No guarding or rebound. No evidence of tenderness throughout. Back: No spinal tenderness. No costovertebral tenderness. Full range of motion. MS/ Extremity: Pulses equal, no cyanosis. Neurovascular intact. Full, normal range of motion. Neuro: Awake and alert, GCS 15, oriented to person, place, time, and situation. Cranial nerves II-XII grossly intact. Motor strength 5/5 in all extremities. Sensory grossly intact. Cerebellar exam normal. Normal gait. Vital Signs: 17:56 BP 154 / 97; Pulse 120; Resp 22; Temp 99.2(O); Pulse Ox 98% ; dm5 20:54 Pulse 102; ss Clover Coma Score: 18:00 Eye Response: spontaneous(4). Verbal Response: oriented(5). Motor Response: obeys dm5 commands(6). Total: 15. MDM: 17:56 Patient medically screened. ma2 18:03 Differential diagnosis: esophagitis, gastritis, gastroesophageal reflux disease (GERD), ma2 pleurisy. Data reviewed: vital signs, nurses notes. Counseling: I had a detailed discussion with the patient and/or guardian regarding: the historical points, exam findings, and any diagnostic results supporting the discharge/admit diagnosis, the presence of at least one elevated blood pressure reading (>120/80) during this emergency department visit. 11/04 18:02 Order name: Basic Metabolic Panel; Complete Time: 18:55 pr2 11/04 18:02 Order name: CBC with Diff; Complete Time: 18:37 ma2 11/04 18:02 Order name: LFT's; Complete Time: 18:55 pr2 11/04 18:02 Order name: Magnesium; Complete Time: 18:55 pr2 11/04 18:02 Order name: NT PRO-BNP; Complete Time: 18:55 ma2 11/04 18:02 Order name: PT-INR; Complete Time: 18:37 pr2 11/04 18:02 Order name: Troponin (emerg Dept Use Only); Complete Time: 18:55 pr2 11/04 18:02 Order name: EKG; Complete Time: 18:03 pr2 11/04 18:02 Order name: Cardiac monitoring; Complete Time: 18:05 pr2 11/04 18:02 Order name: EKG - Nurse/Tech; Complete Time: 18:05 pr2 11/04 18:02 Order name: IV Saline Lock; Complete Time: 18:05 pr2 11/04 18:02 Order name: Labs collected and sent; Complete Time: 18:05 pr2 11/04 18:04 Order name: O2 Sat Monitoring; Complete Time: 18:04 5 11/04 18:04 Order name: O2 Per Protocol; Complete Time: 18:04 5 11/04 18:04 Order name: Labs collected and sent; Complete Time: 18:20 5 11/04 18:04 Order name: EKG; Complete Time: 18:04 5 11/04 18:04 Order name: XRAY Chest (1 view); Complete Time: 18:55 5 11/04 18:04 Order name: IV Saline Lock; Complete Time: 18:04 5 11/04 18:04 Order name: EKG - Nurse/Tech; Complete Time: 18:04 5 11/04 18:04 Order name: Cardiac monitoring; Complete Time: 18:20 dm5 Administered Medications: 18:03 Drug: Ativan 2 mg Route: PO; dm5 19:06 Drug: NS 0.9% 1000 ml Route: IV; Rate: 1 bolus; Site: right antecubital; dm5 20:55 Follow up: IV Status: Completed infusion; IV Intake: 1000ml ss 19:06 Drug: Ativan 1 mg Route: IVP; Site: right antecubital; dm5 20:55 Follow up: Response: No adverse reaction; Anxiety decreased ss Disposition: 11/05/19 19:01 Discharged to Home. Impression: Other stimulant abuse with intoxication - methamphetamin, Tachycardia, unspecified. - Condition is Stable. - Discharge Instructions: Stimulant Use Disorder-Methamphetamines. - Work release form, Medication Reconciliation Form, Thank You Letter, Antibiotic Education, Prescription Opioid Use form. - Follow up: Private Physician; When: Tomorrow; Reason: Continuance of care. Signatures: Dispatcher [employer] [facility] Rhonda Seay, RN ELVIS dm5 Nancy Sam RN RN ss Alzahri, Mohammad, MD MD [facility] Corrections: (The following items were deleted from the chart) 18:05 18:02 Oxygen Per Protocol ordered. [place] [id number] 18:05 18:02 O2 Sat Monitoring ordered. [place] [id number] 18:06 18:03 Chest Single View+RAD.RAD.BRZ ordered. EDMS EDMS 18:08 18:04 TROPONIN (EMERG DEPT USE ONLY)+C.LAB.BRZ ordered. EDMS EDMS 18:08 18:04 PROTIME (+INR)+COAG.LAB.BRZ ordered. EDMS EDMS 18:08 18:04 PROBNP+C.LAB.BRZ ordered. EDMS EDMS 18:08 18:04 MAGNESIUM+C.LAB.BRZ ordered. EDMS EDMS 18:08 18:04 HEPATIC FUNCTION+C.LAB.BRZ ordered. EDMS EDMS 18:08 18:04 CBC+H.LAB.BRZ ordered. EDMS EDMS 18:08 18:04 BASIC METABOLIC PANEL+C.LAB.BRZ ordered. EDNC EDMS 20:55 19:01 11/05/2019 19:01 Discharged to Home. Impression: Other stimulant abuse with ss intoxication - methamphetamin; Tachycardia, unspecified. Condition is Stable. Discharge Instructions: Stimulant Use Disorder-Methamphetamines. Forms are Medication Reconciliation Form, Thank You Letter, Antibiotic Education, Prescription Opioid Use. Follow up: Private Physician; When: Tomorrow; Reason: Continuance of care. [facility] 11/05 08:43 08:42 PMHx: Lactose intolerance; dm5 dm5
[2019-11-05] MEDS ORDERED: NA CHLORIDE 0.9% 1,000 ML ONE (19:09)
[2019-11-05] MEDS ORDERED: LORazepam 2 MG/ML VIAL ONE (19:09)
[2019-11-05 21:00] VITALS: BP 154/97; TEMP 99.2; O2SAT 98
[2019-11-13] MEDS ORDERED: dexAMETHasone 10 MG/ML VIAL ONE (14:04)
[2019-11-13] MEDS ORDERED: ENOXAPARIN 80 MG/0.8 ML SQ ONE (14:05)
== END 2019-11-05 20:55 | disposition home or self-care (01) ==
LOC: ER 17:39
DX: F15.129 Other stimulant abuse with intoxication, unspecified (principal); R00.0 Tachycardia, unspecified
CPT/HCPCS: 96361; 93005; 85025; 80048; 36415; 83735; 85610; 80076; 84484; 83880; 71045; 96374; 99285; J7030

== ENCOUNTER 2019-11-07 13:39 | Emergency (ER) | payer OTHER ==
--- OUTSIDE RECORDS SUMMARY | 2019-11-07 15:59 | XMS REPORT | Continuity of Care Document ---
:1985 Author Organization [facility] t Address [address] [place] [address] Care Team Providers Name Role Phone Blank [...] DeleonLINICAL INDICATION: R91.1 Solitary pulmonary noduleMODALITY: Siemens Zinio CT (Iterative dose reduction techniques are utilized.)TECHNIQUE: [...]
--- NOTE | 2019-11-07 16:55 | ER ---
Nurse's Notes [facility] Name: Kvng Parker Age: 34 yrs Sex: Male : 1985 Arrival Date: 11/07/2019 Time: 13:42 Bed 30 Private MD: Diagnosis: Anxiety disorder, unspecified;Abuse of non-psychoactive substances Presentation: 11/06 13:58 Chief complaint: Patient states: frontal headache, feels his heart is racing and his sv pressure is up. Pt was seen here on 11/05/19 for being drunk and used meth. States he doesn't know if its his anxiety or not. Coronavirus screen: Proceed with normal triage. Patient denies a cough. Patient reports shortness of breath or difficulty breathing. Patient denies measured and/or subjective temperature greater than 100.4F prior to today's visit. Patient denies travel on a cruise ship or to a country the [facility] currently lists as an affected area. Patient denies contact with known and/or suspected case of COVID-19. Prior COVID test collected on: 11/04/19-negative result. Ebola Screen: No symptoms or risks identified at this time. Risk Assessment: Do you want to hurt yourself or someone else? Patient reports no desire to harm self or others. Onset of symptoms was November 05, 2019. 13:58 Method Of Arrival: Ambulatory sv 13:58 Acuity: SHEILA 3 sv 14:01 Initial Sepsis Screen: Does the patient meet any 2 criteria? No. Patient's initial sv sepsis screen is negative. Does the patient have a suspected source of infection? No. Patient's initial sepsis screen is negative. Triage Assessment: 13:58 General: Appears in no apparent distress. comfortable, Behavior is cooperative, sv appropriate for age, anxious. Pain: Complains of pain in face and chest. Neuro: Level of Consciousness is awake, alert, obeys commands, Oriented to person, place, time, situation, Moves all extremities. Full function Gait is steady, Speech is normal. Respiratory: Airway is patent Respiratory effort is even, unlabored, Respiratory pattern is regular, symmetrical. Historical: - Allergies: 14:00 No Known Allergies; sv - PMHx: 14:00 Lactose intolerance; sv - PSHx: 14:00 None; sv Screenin:00 Abuse screen: Denies threats or abuse. Denies injuries from another. Nutritional sv screening: No deficits noted. Tuberculosis screening: No symptoms or risk factors identified. Fall Risk None identified. Vital Signs: 14:01 BP 127 / 91; Pulse 85; Resp 18; Temp 98.1; Pulse Ox 98% ; Weight 79.38 kg; Height 5 ft. sv 6 in. (167.64 cm); 14:01 Body Mass Index 28.25 (79.38 kg, 167.64 cm) sv NIH Stroke Scale Scores: 16:52 NIHSS Score: 0 [facility] ED Course: 13:42 Patient arrived in ED. mr 13:58 Arm band placed on. sv 14:00 Triage completed. sv 14:28 EKG done, by soldering technician. reviewed by Navi Boyd MD. at1 16:03 Navi Boyd MD is Attending Physician. meryl 16:31 Marianna Juarez, ELVIS is Primary Nurse. iw 17:00 Patient has correct armband on for positive identification. Bed in low position. Call sv light in reach. 17:22 No provider procedures requiring assistance completed. Patient did not have IV access sv during this emergency room visit. Administered Medications: No medications were administered Outcome: 16:55 Discharge ordered by . meryl 17:22 Discharged to home ambulatory. iw 17:22 Condition: good 17:22 Discharge instructions given to patient, Instructed on discharge instructions, follow up and referral plans. Demonstrated understanding of instructions, follow-up care. 17:22 Patient left the ED. NIH Stroke Scale - NIH Stroke Score Date: 11/07/2019 Time: 16:52 Total Score = 0 1a. Level of Consciousness (LOC) - 0(Alert) 1b. Level of Consciousness (LOC) (Year \T\ Age) - 0(Both) 1c. LOC Commands (Open \T\ Closes Eyes/Offset Platemaker) - 0(Both) 2. Best Gaze (Lateral Gaze Paresis) - 0(Normal) 3. Visual Field Loss - 0(No visual loss) 4. Facial Palsy - 0(Normal) 5a. Left Arm: Motor (10-second hold) - 0(No drift) 5b. Right Arm: Motor (10-second hold) - 0(No drift) 6a. Left Leg: Motor (5-second hold - always test supine) - 0(No drift) 6b. Right Leg: Motor (5-second hold - always test supine) - 0(No drift) 7. Limb Ataxia (finger/nose \T\ heel/ko - test with eyes open) - 0(Absent) 8. Sensory Loss (pinprick arms/legs/face) - 0(Normal) 9. Best Language: Aphasia (description/naming/reading) - 0(No aphasia) 10. Dysarthria (speech clarity - read or repeat words) - 0(Normal) 11. Extinction and Inattention (visual/tactile/auditory/spatial/personal) - 0(No abnormality) Initials: meryl Signatures: Kandice Garcia, RN Navi Call MD MD cha Rivera, Rachel mr Marianna Juarez, RN Thu Hernandez, door operator EKG Tat1 Corrections: (The following items were deleted from the chart) 14:04 13:58 Chief complaint: Patient states: frontal headache, feels his heart is sv racing and his pressure is up. Pt was seen here on 11/05/19 for being drunk and used meth. sv
--- NOTE | 2019-11-07 16:56 | EDPHYS ---
Physician Documentation [facility] Name: Kvng Parker Age: 34 yrs Sex: Male : 1985 Arrival Date: 11/07/2019 Time: 13:42 Bed 30 Private MD: ED Physician Navi Boyd HPI: 11/06 16:36 This 34 yrs old Male presents to ER via Ambulatory with complaints of Head meryl pressure, Anxiety. Historical: - Allergies: 14:00 No Known Allergies; sv - PMHx: 14:00 Lactose intolerance; sv - PSHx: 14:00 None; sv ROS: 16:50 Constitutional: Negative for fever, chills, and weight loss, Eyes: Negative for injury, meryl pain, redness, and discharge, ENT: Negative for injury, pain, and discharge, Neck: Negative for injury, pain, and swelling, Cardiovascular: Negative for chest pain, palpitations, and edema, Respiratory: Negative for shortness of breath, cough, wheezing, and pleuritic chest pain, Abdomen/GI: Negative for abdominal pain, nausea, vomiting, diarrhea, and constipation, Back: Negative for injury and pain, : Negative for injury, bleeding, discharge, and swelling, MS/Extremity: Negative for injury and deformity, Skin: Negative for injury, rash, and discoloration, Neuro: Negative for headache, weakness, numbness, tingling, and seizure, Psych: Negative for depression, anxiety, suicide ideation, homicidal ideation, and hallucinations, Allergy/Immunology: Negative for hives, rash, and allergies, Endocrine: Negative for neck swelling, polydipsia, polyuria, polyphagia, and marked weight changes, Hematologic/Lymphatic: Negative for swollen nodes, abnormal bleeding, and unusual bruising. Exam: 16:50 Constitutional: This is a well developed, well nourished patient who is awake, alert, meryl and in no acute distress. Head/Face: Normocephalic, atraumatic. Eyes: Pupils equal round and reactive to light, extra-ocular motions intact. Lids and lashes normal. Conjunctiva and sclera are non-icteric and not injected. Cornea within normal limits. Periorbital areas with no swelling, redness, or edema. ENT: Nares patent. No nasal discharge, no septal abnormalities noted. Tympanic membranes are normal and external auditory canals are clear. Oropharynx with no redness, swelling, or masses, exudates, or evidence of obstruction, uvula midline. Mucous membranes moist. Neck: Trachea midline, no thyromegaly or masses palpated, and no cervical lymphadenopathy. Supple, full range of motion without nuchal rigidity, or vertebral point tenderness. No Meningismus. Chest/axilla: Normal chest wall appearance and motion. Nontender with no deformity. No lesions are appreciated. Cardiovascular: Regular rate and rhythm with a normal S1 and S2. No gallops, murmurs, or rubs. Normal PMI, no JVD. No pulse deficits. Respiratory: Lungs have equal breath sounds bilaterally, clear to auscultation and percussion. No rales, rhonchi or wheezes noted. No increased work of breathing, no retractions or nasal flaring. Abdomen/GI: Soft, non-tender, with normal bowel sounds. No distension or tympany. No guarding or rebound. No evidence of tenderness throughout. Back: No spinal tenderness. No costovertebral tenderness. Full range of motion. Male : Normal genitalia with no discharge or lesions. Skin: Warm, dry with normal turgor. Normal color with no rashes, no lesions, and no evidence of cellulitis. MS/ Extremity: Pulses equal, no cyanosis. Neurovascular intact. Full, normal range of motion. Neuro: Awake and alert, GCS 15, oriented to person, place, time, and situation. Cranial nerves II-XII grossly intact. Motor strength 5/5 in all extremities. Sensory grossly intact. Cerebellar exam normal. Normal gait. Psych: Awake, alert, with orientation to person, place and time. Behavior, mood, and affect are within normal limits. 16:50 Musculoskeletal/extremity: DVT Exam: No signs of deep vein thrombosis. no pain, no swelling, no tenderness, negative Homans' sign noted on exam, no appreciated bluish discoloration, no erythema, no increased warmth. Vital Signs: 14:01 BP 127 / 91; Pulse 85; Resp 18; Temp 98.1; Pulse Ox 98% ; Weight 79.38 kg; Height 5 ft. sv 6 in. (167.64 cm); 14:01 Body Mass Index 28.25 (79.38 kg, 167.64 cm) sv NIH Stroke Scale Scores: 16:52 NIHSS Score: 0 meryl MDM: 16:03 Patient medically screened. meryl 16:51 Data reviewed: vital signs, nurses notes, EKG. [facility] 16:52 Data interpreted: ekg monitor: not applicable for this patient encounter. rate is meryl 85 beats/min, rhythm is normal sinus rhythm, regular, Pulse oximetry: on room air is 98 %. Test interpretation: by ED physician or midlevel provider: ECG. Counseling: I had a detailed discussion with the patient and/or guardian regarding: the historical points, exam findings, and any diagnostic results supporting the discharge/admit diagnosis, lab results, the need for outpatient follow up, for definitive care, a family practitioner. ED course: pt neurologically intact, will stop using drugs, follow up pcp and will not drink alcohol either. 11/06 14:04 Order name: EKG; Complete Time: 14:04 sv 11/06 14:04 Order name: EKG - Nurse/Tech; Complete Time: 14:04 sv Administered Medications: No medications were administered Disposition: 11/07/19 16:55 Discharged to Home. Impression: Anxiety disorder, unspecified, Abuse of non-psychoactive substances. - Condition is Stable. - Discharge Instructions: Panic Attacks, Substance Use Disorder, Panic Attacks, [id number], Generalized Anxiety Disorder. - Prescriptions for Benadryl 25 mg Oral Capsule - take 1 capsule by ORAL route every 6 hours As needed; 30 tablet. - Medication Reconciliation Form, Thank You Letter, Antibiotic Education, Prescription Opioid Use, Work release form form. - Follow up: Private Physician; When: 2 - 3 days; Reason: Recheck today's complaints, Continuance of care, Re-evaluation by your physician. - Problem is new. - Symptoms have improved. NIH Stroke Scale - NIH Stroke Score Date: 11/07/2019 Time: 16:52 Total Score = 0 1a. Level of Consciousness (LOC) - 0(Alert) 1b. Level of Consciousness (LOC) (Year \T\ Age) - 0(Both) 1c. LOC Commands (Open \T\ Closes Eyes/Wire Wrapper Machine Operator) - 0(Both) 2. Best Gaze (Lateral Gaze Paresis) - 0(Normal) 3. Visual Field Loss - 0(No visual loss) 4. Facial Palsy - 0(Normal) 5a. Left Arm: Motor (10-second hold) - 0(No drift) 5b. Right Arm: Motor (10-second hold) - 0(No drift) 6a. Left Leg: Motor (5-second hold - always test supine) - 0(No drift) 6b. Right Leg: Motor (5-second hold - always test supine) - 0(No drift) 7. Limb Ataxia (finger/nose \T\ heel/ko - test with eyes open) - 0(Absent) 8. Sensory Loss (pinprick arms/legs/face) - 0(Normal) 9. Best Language: Aphasia (description/naming/reading) - 0(No aphasia) 10. Dysarthria (speech clarity - read or repeat words) - 0(Normal) 11. Extinction and Inattention (visual/tactile/auditory/spatial/personal) - 0(No abnormality) Initials: meryl Signatures: Kandice Garcia RN RN Navi Suazo MD MD cha Williams, Irene, RN RN iw Corrections: (The following items were deleted from the chart) 17:22 16:55 11/07/2019 16:55 Discharged to Home. Impression: Anxiety disorder, iw unspecified; Abuse of non-psychoactive substances. Condition is Stable. Forms are Medication Reconciliation Form, Thank You Letter, Antibiotic Education, Prescription Opioid Use. Follow up: Private Physician; When: 2 - 3 days; Reason: Recheck today's complaints, Continuance of care, Re-evaluation by your physician. Problem is new. Symptoms have improved. meryl
[2019-11-07 17:34] VITALS: BP 127/91; TEMP 98.1; O2SAT 98
--- NOTE | 2019-11-08 06:40 | EKG ---
Test Date: 2019-11-07 Test Time: 14:04:02 Sewing Machine Repairer: AKHIL MEASUREMENT RESULTS: Intervals: Rate: 76 TX: 120 QRSD: 106 QT: 370 QTc: 416 [place]: P: 32 TX: 120 QRS: 12 T: 36 INTERPRETIVE STATEMENTS: Normal sinus rhythm Minimal voltage criteria for LVH, may be normal variant Borderline ECG Compared to ECG 11/05/2019 17:54:58 Left ventricular hypertrophy now present Sinus tachycardia no longer present Incomplete right bundle-branch block no longer present ST (T wave) deviation no longer present Electronically Signed On 11-08-19 06:39:29 CDT by Eric Berumen
== END 2019-11-07 17:22 | disposition home or self-care (01) ==
LOC: ER 13:39
DX: F55.8 Abuse of other non-psychoactive substances (principal); E73.9 Lactose intolerance, unspecified
CPT/HCPCS: 93005; 99283